=== PATIENT | female | born 1945 | race Caucasian/White ===

== ENCOUNTER → 2016-05-13 15:40 | Outpatient (CLI) | payer MEDICARE, OTHER ==
[2011-12-24 06:20] VITALS: BMI 30.6
== END | disposition home or self-care (01) ==
LOC: D.MRI 15:40
DX: M54.14 Radiculopathy, thoracic region (principal)

== ENCOUNTER → 2018-03-17 08:48 | Outpatient (CLI) | payer MEDICARE, OTHER ==
[2011-12-24 06:20] VITALS: BMI 30.6
== END | disposition home or self-care (01) ==
LOC: D.HCCARDIO 08:48
DX: I20.9 Angina pectoris, unspecified (principal)

== ENCOUNTER 2018-04-05 11:10 | Outpatient (CLI) | payer MEDICARE, OTHER ==
[~2018-04-05] VITALS: Ht 170.2 cm; Wt 83.6 kg
--- NOTE | ~2018-04-05 | HEMODYNAMI ---
PATIENT:PADMINI ROME MEDICAL RECORD: [id number] : 45 LOCATION:[facility] ADMISSION DATE: 04/05/18 Generatedon:04/05/201813:53 Patient name: PADMINI ROME Patient #: [id number] SSN: : 1945 Date of study: 04/05/2018 Page: Of Hemodynamic Procedure Report Patient Data Patient Demographics Procedure consent was obtained First Name: PADMINI Gender: Female Last Name: WILD : 1945 [facility] Initial: PADMAJA Age: 72 year(s) Patient #: [id number] Race: Unknown Additional ID: [id number] Contact details Address: [address] [place] [address] rd State: [place] City: [place] Zip code: [address] Past Medical History Allergies Allergen Reaction Date Comments Reported Other allergy 04/05/2018 VICOPROFEN, STATINS, CODEINE, MORPHINE, VIOXX, NATALIA DYE Admission Admission Data Admission Date: 04/05/2018 Admission Time: 11:10 Height (in.): 67 BSA: 1.97 (m2) Height (cm.): 170.18 BMI: 29.29 (kg/m2) Weight (lbs.): 187 Weight (kg.): 84.82 Lab Results Lab Result Date: 04/05/2018 Lab Result Time: 0:00 Biochemistry Name Units Result Min Max BUN mg/dl 36 --(----)-* 7 18 Creatinine mg/dl 1.2 --(---*)-- 0.6 1.3 CBC Name Units Result Min Max Hemoglobin g/dl 13.7 --(*---)-- 13.5 17.5 Procedure Procedure Types Cath Procedure Diagnostic Procedure [facility] w/[facility] Procedure Description Procedure Date Procedure Date: 04/05/2018 Procedure Start Time: 13:41 Procedure End Time: 13:50 Procedure Staff Name Function Héctor Sung MD Performing Physician Sandra Dexter RT Monitor Catracho Tanner RN Nurse Therese Guerra RT Scrub Procedure Data Cath Procedure Fluoroscopy Diagnostic fluoroscopy Total fluoroscopy Time: 2.3 time: 2.3 min min Diagnostic fluoroscopy Total fluoroscopy dose: 154 dose: 154 mGy mGy Contrast Material Contrast Material Type Amount (ml) Isovue 300 70 Entry Location Entry Primary Successful Side Size Upsize Upsize Entry Closure Martinez ccessful Closure Location (Fr) 1 (Fr) 2 (Fr) Remarks Device Remarks Radial Right 6 Fr Mechanical artery Short Compression Estimated blood loss: 5 ml Diagnostic catheters Device Type Used For End Catheter Placement DIAGNOSTIC Pe Ell 110cm 5 Procedure Fr catheter ([id number]) Procedure Complications No complications Procedure Medications Medication Administration Route Dosage Oxygen etCO2 Nasal cannula 2 l/min Heparin Flush Bag added to field 2 bags (1000units/500ml NS) 0.9% NaCl I.V. 100 ml/hr Radial Cocktail added to field 1 syringe (Verapomil 2mg/Nitro 400mcg/Heparin 1500units) Fentanyl I.V. 50 mcg Versed I.V. 1 mg Fentanyl I.V. 50 mcg Versed I.V. 1 mg Radial Cocktail I.A. 1 syringe (Verapomil 2mg/Nitro 400mcg/Heparin 1500units) Hemodynamics Rest BSA: 1.97 (m2) HGB: 13.7 (g/dl) O2 Consumption: Estimated: 178.94 (ml/min) O2 Co nsumption indexed: Estimated:90.83 (ml/min/m) Heart Rate: 68 (bpm) Gradients Valve Time Site Site Mean SEP/DFP Peak To Heart Use 1 2 (mmHg) (sec/min) Peak Rate (mmHg) (bpm) Aortic 13:45 LV AO 62 Snapshots Pre Cath Intra NCS Post Cath Vital Signs Time Heart Resp SPO2 etCO2 NIBP (mmHg) Rhythm Pain Sedation Rate (ipm) (%) (mmHg) Status Level (bpm) 13:26:22 60 17 96 0 190/101(148) NSR 0 (11) 10(A) , No pain 13:30:52 71 17 100 32.5 187/105(155) NSR 0 (11) 10(A) , No pain 13:36:18 71 17 98 0 168/97(135) NSR 0 (11) 10(A) , No pain 13:40:44 72 16 98 34 175/100(143) NSR 0 (11) 10(A) , No pain 13:45:23 75 16 96 24.2 126/66(84) NSR 0 (11) 9(A) , No pain 13:50:24 74 16 93 25.7 154/84(134) NSR 0 (11) 9(A) , No pain Medications Time Medication Route Dose Verified Delivered Reason Notes Effectiveness by by 13:27:16 Oxygen etCO2 2 l/min Héctor Catracho Per Nasal Pineda Tanner RN physician cannula 13:27:25 Heparin Flush added 2 bags Héctor Catracho used for Bag to Pineda Tanner RN procedure (1000units/500ml field NS) 13:27:36 0.9% NaCl I.V. 100 Héctor Catracho Per ml/hr Pineda Tanner RN physician 13:27:44 Radial Cocktail added 1 Héctor Catracho used for (Verapomil to syringe Pineda Tanner RN procedure 2mg/Nitro field 400mcg/Heparin 1500units) 13:39:19 Fentanyl I.V. 50 mcg Héctor Catracho for sedation Pineda Tanner RN 13:39:27 Versed I.V. 1 mg Héctor Catracho for sedation Pineda Tanner RN 13:42:33 Fentanyl I.V. 50 mcg Héctor Catracho for sedation Pineda Tanner RN 13:42:40 Versed I.V. 1 mg Héctor Catracho for sedation Pineda Tanner RN 13:42:51 Radial Cocktail I.A. 1 Héctor Héctor for (Verapomil syringe Pineda Sung MD vasodilation 2mg/Nitro 400mcg/Heparin 1500units) Procedure Log Time Note 13:03:34 Time tracking: Regular hours (M-F 7:00 - 5:00) 13:03:38 Plan of Care:Hemodynamics will remain stable., Cardiac rhythm will remain stable., Comfort level will be maintained., Respiratory function will remain adequate., Patient/ family verbilizes understanding of procedure., Procedure tolerated without complication., Recovers from procedure without complications.. 13:06:43 Catracho Tanner RN sent for patient. Start room use. 13:13:44 Diagnostic Cath status Elective 13:13:45 Signed procedure consent form obtained from patient. 13:14:12 Lab Result : BUN 36 mg/dl 13:14:12 Lab Result : Creatinine 1.2 mg/dl 13:14:12 Lab Result : Hemoglobin 13.7 g/dl 13:15:46 H&P Date Dictated: 04/05/2018 Within 30 days and on chart., H&P Addendum completed by physician on day of procedure. (MUST COMPLETE FOR ALL OUTPATIENTS). 13:16:01 Patient allergic to Other allergyVICOPROFEN, STATINS, CODEINE, MORPHINE, VIOXX, NATALIA DYE 13:16:13 Patient Height : 67 inches 13:16:17 Patient Weight : 187 lbs 13:19:35 Patient received from Pre/Post Procedure Room to CCL 1 Alert and oriented. Tansferred to table in Supine position. 13:19:36 Warm blankets applied, and calvin hugger turned on for patient comfort. 13:19:36 Correct patient and procedure confirmed by team. 13:19:37 ECG and BP/O2 sat monitors applied to patient. 13:25:06 Vital chart was started 13:27:16 Oxygen 2 l/min etCO2 Nasal cannula was administered by Catracho Tanner RN; Per physician; 13:27:25 Heparin Flush Bag (1000units/500ml NS) 2 bags added to field was administered by Catracho Tanner RN; used for procedure; 13:27:36 0.9% NaCl 100 ml/hr I.V. was administered by Catracho Tanner RN; Per physician; 13:27:44 Baseline sample Acquired. 13:27:44 Radial Cocktail (Verapomil 2mg/Nitro 400mcg/Heparin 1500units) 1 syringe added to field was administered by Catracho Tanner RN; used for procedure; 13:27:47 Rhythm: sinus rhythm 13:27:48 Full Disclosure recording started 13:27:48 Pre-procedure instructions explained to patient. 13:27:49 Pre-op teaching completed and patient verbalized understanding. 13:27:50 Family in patients room. 13:27:53 Patient NPO since Midnight. 13:27:58 Is the patient allergic to Iodine/contrast media? Yes. 13:27:59 Was the patient premedicated? Yes 13:28:00 Is patient on blood thinner?No 13:28:01 Patient diabetic? No. 13:28:04 Previous problem with sedation/anesthesia? No ? 13:28:05 Snore? Yes 13:28:06 Sleep apnea? No 13:28:07 Deviated septum? No 13:28:07 Opens mouth fully? Yes 13:28:08 Sticks out tongue? Yes 13:28:09 Airway obstruction? No ? 13:28:13 Dentures? Yes IN TIGHT 13:28:16 Modified Harvinder's test Ulnar < 7 seconds 13:28:19 Patient pain scale 0/10 ?. 13:28:22 IV patent on arrival in left hand with 0.9% NaCl at [facility]. 13:28:24 Lab results completed and on chart. 13:28:29 Right Radial & Right Groin area was prepped with chlora-prep and draped in sterile fashion 13:28:30 Alarms reviewed by R. N. 13:28:30 Sharps counted by scrub and verified by R.N. 13:28:33 Use device set Radial Dx or PCI 13:28:35 ACIST Syringe (43545) opened to sterile field. 13:28:36 Bag Decanter (2002S) opened to sterile field. 13:28:36 ACIST Hand Control (95163) opened to sterile field. 13:28:37 ACIST Manifold (58338) opened to sterile field. 13:28:37 Tegaderm 4 x 4 (1626W) opened to sterile field. 13:28:39 Medline Cath Pack ([id number]) opened to sterile field. 13:28:39 DIAGNOSTIC WIRE .035 260cm J wire (242956) opened to sterile field. 13:28:41 SHEATH 6FR Slender (57-1011) opened to sterile field. 13:28:44 NEEDLE Cook 21G 4cm Radial ([id number]) opened to sterile field. 13:36:17 --------ALL STOP TIME OUT------ 13:36:17 Final Timeout: patient, procedure, and site verified with staff and physician. All members of the team are in agreement. 13:36:19 Right Radial & Right Groin site verified by team. 13:36:21 Physical assessment completed. ASA score P 2 - A patient with mild systemic disease as per Héctor Sung MD. 13:36:24 Sedation plan: IV Moderate Sedation Medication:Versed, Fentanyl 13:39:19 Fentanyl 50 mcg I.V. was administered by Catracho Tanner RN; for sedation; 13:39:27 Versed 1 mg I.V. was administered by Catracho Tanner RN; for sedation; 13:40:49 Zero performed for pressure channel P1 13:40:54 Procedure started. 13:41:04 Local anesthetic to right radial artery with Lidocaine 2% by Héctor Sung MD.INITIAL ACCESS ONLY 13:42:18 A 6 Fr Short sheath was inserted into the Right Radial artery 13:42:33 Fentanyl 50 mcg I.V. was administered by Catracho Tanner RN; for sedation; 13:42:40 Versed 1 mg I.V. was administered by Catracho Tanner RN; for sedation; 13:42:51 Radial Cocktail (Verapomil 2mg/Nitro 400mcg/Heparin 1500units) 1 syringe I.A. was administered by Héctor Sung MD; for vasodilation; 13:43:42 A DIAGNOSTIC Pe Ell 110cm 5 Fr catheter ([id number]) was advanced over the wire and used for Procedure. 13:45:00 LV gram done using WEINSTEIN 13:45:04 Injector settings: Ml/sec: 5, Volume: 10, 13:45:10 EF : 65 % 13:45:24 LV hemodynamics recorded. 13:47:44 LCA angiography performed. 13:48:15 RCA angiography performed. 13:48:20 Catheter removed. 13:48:50 TR BAND Standard ([id number]) opened to sterile field. 13:49:00 Procedure ended.(Physican Out) 13:49:26 Sheath removed intact; hemostasis achieved with Mechanical Compression to the Right Radial artery. 13:49:33 Fluoroscopy time 02.30 minutes. 13:49:41 Fluoroscopy dose: 154 mGy 13:49:41 Flurop Dose total: 154 13:49:46 Contrast amount:Isovue 300 70ml. 13:49:48 Sharps counted by scrub and verified by R.N. 13:49:51 TR band inflated with 10cc of air. 13:49:54 Post-procedure physical assessment completed. ASA score P 2 - A patient with mild systemic disease as per Héctor Sung MD. 13:49:57 Post procedure rhythm: sinus rhythm 13:49:59 Estimated blood loss: 5 ml 13:50:01 Post procedure instruction explained to patient.Patient verbalizes understanding. 13:50:01 Patient needs reinforcement of post procedure teaching. 13:50:38 Procedure and supply charges have been captured, reviewed, submitted and are correct. 13:50:41 Procedure Complication : No complications 13:50:43 Vital chart was stopped 13:50:44 See physician's report for complete and final results. 13:50:45 Report given to Pre/Post Procedure Room. 13:50:47 Patient transfered to Pre/Post Procedure Room with Bed. 13:50:49 Procedure ended. 13:50:49 Full Disclosure recording stopped 13:50:52 End room use (Document Last) Device Usage Item Name Manufacture Quantity Catalog Hospital Part Current Minimal Lot# / Number Charge Number Stock Stock Serial# Code ACIST Acist 1 18402 381763 873265 502460 20 Syringe Medical (38860) Systems Inc Bag Microtek 1 691459 15176 719519 5 Decanter Medical Inc. () ACIST Hand Acist 1 92723 260079 613686 994045 5 Control Medical (34127) Systems Inc ACIST Acist 1 08759 208011 286870 169510 5 Manifold Medical (04197) Systems Inc Tegaderm 4 3M 1 1626W 335646 401870 366868 5 x 4 (1626W) Medline Medline 1 [id number] 778334 81086 770927 5 Cath Pack ([id number]) DIAGNOSTIC St Alfa 1 271385 801498 693616 679500 30 WIRE .035 260cm J wire (129148) SHEATH 6FR Terumo 1 [id number] 242177 256795 566839 5 Slender (80-1060) NEEDLE Cook Cook Medical 1 L95081 444829 077965 453333 5 21G 4cm Radial ([id number]) DIAGNOSTIC Terumo 1 40-5973 930739 754286 516485 5 Pe Ell 110cm 5 Fr catheter (347064) TR BAND Terumo 1 [id number] 141129 773562 225038 40 Standard ([id number]) Signature [place] Stage Time Signature Unsigned Intra-Procedure 04/05/2018 Sandra Dexter 1:53:43 PM RT(R) Signatures Monitor : Sandra Guerita Signature : RT Date : Time : [place] [address] [place] [address]
[2018-04-05] MEDS ORDERED: PREDNISONE10 MG PO (11:45)
[2018-04-05] MEDS ORDERED: LEVOXYL25 MCG PO (11:45)
[2018-04-05] MEDS ORDERED: MAXZIDE 75/501 TAB PO (11:46)
[2018-04-05] MEDS ORDERED: ULTRAM50 MG PO (11:46)
[2018-04-05] MEDS ORDERED: OMEPRAZOLE40 MG PO (11:46)
[2018-04-05] MEDS ORDERED: FERROUS SULFAT325 MG PO (11:47)
[2018-04-05] MEDS ORDERED: PREMARIN0.625 MG PO (11:47)
[2018-04-05] MEDS ORDERED: CENTRUM SILVER1 EAC3 PO (11:47)
[2018-04-05] MEDS ORDERED: CALCIUM 600 +1 EAC3 PO (11:48)
[2018-04-05 12:03] VITALS: BP 165/90; Ht 170.2 cm; Wt 83.6 kg
[2018-04-05 12:10] LABS: BASOPHILS 0.1 % (0-2); EOSINOPHILS 0.3 % (0-7); HEMATOCRIT 40.9 % (36.0-48.0); HEMOGLOBIN 13.7 g/dL (12-16); IMMATURE GRANULOCYTES 0.8 % (0-5); LYMPHOCYTES 11.3 % (15-50); MCH 31.8 pg (26.0-34.0); MCHC 33.5 g/dL (31.0-37.0); MCV 94.9 fL (80.0-100.0); MEAN PLATELET VOLUME 11.3 fL (7.4-10.4); MONOCYTES 6.6 % (2-11); NEUTROPHILS 80.9 % (40-80); PLATELET COUNT 206 10x3/uL (130-400); RBC 4.31 10x6/uL (4.00-5.40); RDW 15.1 % (11.5-14.5); WBC 14.6 10x3/uL (4.8-10.8)
[2018-04-05 12:19] LABS: ANION GAP 16.3 mmol/L (8-16); CALCIUM 8.7 mg/dL (8.5-10.1); CARBON DIOXIDE 27.6 mmol/L (21.0-32.0); CREATININE - SERUM 1.2 mg/dL (0.6-1.3); POTASSIUM - SERUM 3.9 mmol/L (3.5-5.1)
== END 2018-04-05 16:10 | disposition home or self-care (01) ==
LOC: D.CATH 11:10
PROVIDERS: Internal Medicine Cardiovascular Disease
DX: I25.119 Atherosclerotic heart disease of native coronary artery with unspecified angina pectoris (principal); E03.9 Hypothyroidism, unspecified; I10 Essential (primary) hypertension; E78.5 Hyperlipidemia, unspecified; M19.90 Unspecified osteoarthritis, unspecified site; Z88.5 Allergy status to narcotic agent; Z88.8 Allergy status to other drugs, medicaments and biological substances; Z88.6 Allergy status to analgesic agent; Z91.041 Radiographic dye allergy status

== ENCOUNTER → 2018-05-17 12:11 | Outpatient (CLI) | payer MEDICARE, OTHER ==
[2018-04-05 12:03] VITALS: BMI 28.9
[~2018-05-17 12:11] MED LIST: CALCIUM 600 +1 EAC3 PO; CENTRUM SILVER1 EAC3 PO; FERROUS SULFAT325 MG PO; LEVOXYL25 MCG PO; MAXZIDE 75/501 TAB PO; OMEPRAZOLE40 MG PO; PREDNISONE10 MG PO; PREMARIN0.625 MG PO; ULTRAM50 MG PO
== END | disposition home or self-care (01) ==
LOC: D.US 12:11
DX: R60.0 Localized edema (principal); M79.662 Pain in left lower leg

== ENCOUNTER → 2018-06-25 12:25 | Outpatient (CLI) | payer MEDICARE, OTHER ==
[2018-04-05 12:03] VITALS: BMI 28.9
== END | disposition home or self-care (01) ==
LOC: D.MRI 12:25
PROVIDERS: ATTEND Family Medicine
DX: M54.16 Radiculopathy, lumbar region (principal)

== ENCOUNTER 2018-07-09 10:23 | Emergency (ER) | payer MEDICARE, OTHER ==
[~2018-07-09] VITALS: Ht 170.2 cm; Wt 88.6 kg
[2018-07-09 10:27] VITALS: Ht 170.2 cm; Wt 88.6 kg
[2018-07-09] MEDS ORDERED: PEPCID40 MG PO (10:32)
[2018-07-09] MEDS ORDERED: ELIQUIS5 MG PO (10:37)
[2018-07-09 13:05] VITALS: BP 178/98
== END 2018-07-09 12:58 | disposition home or self-care (01) ==
LOC: D.ER 10:23
DX: S82.831A Other fracture of upper and lower end of right fibula, initial encounter for closed fracture (principal); W18.30XA Fall on same level, unspecified, initial encounter; Y93.89 Activity, other specified; Y92.019 Unspecified place in single-family (private) house as the place of occurrence of the external cause; S89.91XA Unspecified injury of right lower leg, initial encounter

== ENCOUNTER → 2018-10-21 08:51 | Outpatient (CLI) | payer MEDICARE, OTHER ==
[2018-07-09 10:27] VITALS: BMI 30.6
[~2018-10-21 08:51] MED LIST changes: +ELIQUIS5 MG PO; +PEPCID40 MG PO
== END | disposition home or self-care (01) ==
LOC: D.HCCARDIO 08:51
PROVIDERS: ATTEND Internal Medicine Cardiovascular Disease
DX: I34.0 Nonrheumatic mitral (valve) insufficiency (principal)

== ENCOUNTER → 2018-10-27 08:46 | Outpatient (CLI) | payer MEDICARE, OTHER ==
[2018-07-09 10:27] VITALS: BMI 30.6
== END | disposition home or self-care (01) ==
LOC: D.US 08:46
PROVIDERS: ATTEND Family Medicine
DX: I80.02 Phlebitis and thrombophlebitis of superficial vessels of left lower extremity (principal)

== ENCOUNTER → 2020-09-17 11:02 | Outpatient (CLI) | payer MEDICARE, OTHER ==
[2018-07-09 10:27] VITALS: BMI 30.6
== END | disposition home or self-care (01) ==
LOC: D.HCCECHO 11:02
PROVIDERS: ATTEND Internal Medicine Cardiovascular Disease
DX: I10 Essential (primary) hypertension (principal)